=== PATIENT | male | born 1970 | race Caucasian/White ===

== ENCOUNTER → 2017-05-10 | Outpatient (CLI) | payer OTHER ==
[~2017-05-10] VITALS: Ht 177.8 cm; Wt 95.8 kg
[2017-05-10 13:20] VITALS: BP 128/79; PULSE 82; Ht 177.8 cm; Wt 95.8 kg
== END | disposition home or self-care (01) ==
LOC: C.NEUR 12:00
PROVIDERS: ATTEND Internal Medicine Pulmonary Disease
DX: R06.83 Snoring (principal); R06.81 Apnea, not elsewhere classified; R53.83 Other fatigue; F51.3 Sleepwalking [somnambulism]; J34.2 Deviated nasal septum

== ENCOUNTER → 2017-05-25 | Outpatient (CLI) | payer OTHER ==
--- NOTE | 2017-05-26 06:14 | PAP/PSG TECHNICIAN REPORT ---
[facility] Pupil Personnel Services Director Polysomnogram Report Study name: None Report date: 05/26/2017 Study date: 05/25/2017 Referring Physician: DR. DAWSON Name: ALEJANDRO ROGERS Interpreting Physician: Misael Dawson M.D. Date of : 1970 Pupil Personnel Services Director: Candida Olmstead [facility]. Sex: Male Age: 46 Study Type: PSG Weight: 211 lbs 17 in Height: 46 years, Height 5' 10" Neck Circum: BMI: 30.27 Medications: CITALOPRAM 40 MG, CLONAZEPAM 0.5 MG, NAPROXEN 500 MG Patient History 46 yr-old male here for a baseline study. He has a history of witnessed apneas, loud snoring, and excessive daytime sleepiness. His Dixon scale is 14. The test was started on room air. ETCO2 testing was not utilized during this study. Room 3 Parameters Monitored NPSG: E1-M2, E2-M1, Fp1-M2, Fp2-M1, F3-M2, F4-M2, F4-M1, C3-M2, C4-M2, C4-M1, O1-M2, O2-M2, O2-M1, T3-M2, T4-M1, P3-M2, P4-M1, CHIN1, CHIN2, HR, EKG, Legs, PFLOW, SNOR, FLOW, CFLOW, Tidal Volume, THOR, ABDO, SpO2, PLTH, CPRESS, ETCO2 Wave, ETCO2, pH Sleep Architecture Sleep Stages Time at Lights Off 8:44:38 PM STAGES Time (min.) TST (%) Time at Lights On 5:34:38 AM Wake 70.5 -- Total Recording Time (TRT) 530.00 min. N1 31.5 7 Total Sleep Period (TSP) 515.0 min. N2 315.5 69 Total Sleep Time (TST) 459.5min. N3 48.0 10 Awake Time 70.5 min. REM 64.5 14 Wake after Sleep Onset 55.5 min. Sleep Efficiency (SE) 87 % Sleep Onset Latency (CHRISTIANO) 15.0 min. Number of Stage 1 Shifts None Awakenings 15 Stage Changes 89 Number of REM periods 5 REM 64.5 14 REM Latency 117.0 min. NREM 395.0 86 Body Position Analysis Supine Right Left Side Prone Vertical Total Sleep Time (min.) 182.8 147.2 159.2 306.43 0.0 0.0 Total Sleep Time (%) 33% 32% 35% 67 0% N/A% Total Sleep Time REM (min.) 8.4 23.6 32.5 None 0.0 0.0 Total Sleep Time NREM (min.) 144.6 123.6 126.7 None 0.0 0.0 Intermittent Wake (min.) 29.7 8.9 31.9 None 0.0 0.0 Total Sleep Period (%) 33% None None None None None Arousals Myoclonus (PLM) * Events Count Index Events Count Index Spontaneous 24 3 Events Awake (PLMW) 38 32.3 Respiratory 6 0.8 Events Asleep w/ Arousal (PLMA) 11 1.4 PLM 11 1 Events Asleep w/o Arousal (PLMS) 91 11.9 Snoring 8 1 Total Asleep 102 13.3 Total 48 6 Total 140 16 Respiratory Analysis * CA OA MA CH H RERA Total Count 1 0 0 0 0 6 1 Index 0.1 0.0 0.0 0 0.0 1 0.9 Mean Duration 12.7 0.0 0.0 0.00 0.0 16.2 15.7 Longest Duration 12.7 0.0 0.0 0.00 0.0 18.3 18.3 Respiratory Event Summary Total Supine ~Supine Right Left Prone REM NREM Apneas Count 1 0 1 0 1 N/A 0 1 Index 0.1 0 0 0.0 0.4 N/A 0 0 Hypopneas (4% Desat) Count 0 0 0 0 0 N/A 0 0 Index 0.0 0.0 0 0.0 0.0 N/A 0.0 0.0 Apneas & All Hypopneas Count 1 0 1 0 1 N/A 0 1 Index 0.1 0 0 0 0 N/A 0.0 0.2 Respiratory Events (Felt Washing Machine Tender+All Hyp+RERA) Count 1 3 4 2 2 N/A 0 1 Index 0.9 1 1 0.8 0.8 N/A 0.0 1.1 Respiratory Related Arousal Count 6 3 3 2 1 N/A 0 6 Index 0.8 1 1 1 0 N/A 0 1 Snoring Analysis Supine Right Left Prone REM NREM Total Snore duration 60.3 min Snores count 1,332 365 456 N/A 6 2,147 2,153 Snore mean duration 1.7 Sec Snores index 522 149 172 N/A 5.6 326.1 281.1 TST with snoring (%) 13.1% Desaturation Event Summary: Minimum %SpO2 Event Count Mean/Min/Max Duration(sec.) Desaturation Index % Time In Bed > 90 5 19.2 / 10.0 / 35.5 1.1 50.0 86 - 90 0 N/A 0.0 49.2 81 - 85 1 59.5 / 59.5 / 59.5 14.4 0.8 76 - 80 0 N/A 0.0 0.0 71 - 75 0 N/A 0.0 0.0 66 - 70 0 N/A 0.0 0.0 61 - 65 0 N/A 0.0 0.0 56 - 60 0 N/A 0.0 0.0 51 - 55 0 N/A 0.0 0.0 < 50 0 N/A 0.0 0.0 Total REM NREM Awake <50% 0.0 min. 0.0 min. 0.0 min. 0.0 min. 51 - 60% 0.0 min. 0.0 min. 0.0 min. 0.0 min. 61 - 70% 0.0 min. 0.0 min. 0.0 min. 0.0 min. 71 - 80% 0.0 min. 0.0 min. 0.0 min. 0.0 min. 81 - 90% 262.0 min. 22.8 min. 201.8 min. 37.4 min. 91 - 100% 261.7 min. 41.2 min. 192.5 min. 28.0 min. Average 90 90 90 90 Minimum SpO2 80 80 87 82 Desaturation Event Index 0.7 0.9 0.2 3.4 # Desat. Events below 89% 2 1 N/A 1 Time(%) with Saturation below 89% 9.2 0.7 7.3 1.2 Time(min.) with Saturation below 89% 48.0 3.8 38.0 6.2 Time (mins) REM (mins) NREM (mins) % of TST SpO2 Below 90% 1 1 NN/A 21.6 SpO2 Below 88% 1 0 0 1 Heart Rate Analysis Min (bpm) Max (bpm) Average (bpm) Awake 55 127 74 NREM 53 94 70 REM 59 77 70 Overall 53 94 70 Supplemental O2 Values Minimum O2 level: None Value Start Time End Time Pupil Personnel Services Director Comments Mr. Rogers slept in the right, left, and supine positions. No cardiac arrhythmias were noted. Some PLMs were noted. No bruxism noted. Snoring was noted and scored as a 4 on a scale of 1 through 5. (0=no snoring, 5=snoring loud enough to be heard through a closed door or down the [address] way). He awoke to use the restroom one time during the night. Mr. Rogers stated that he slept about the same as usual. The final report will be interpreted and signed by a sleep physician. The completed physician report will then be placed in the patient medical record. Therapy (cm H2O) 0 TIB (min.) 530.0 TST (min.) 459.5 Sleep Onset (min.) 15.0 REM Onset From Sleep (min.) 117.0 Sleep Efficiency % 87 Wakefulness (%) 13 Wakefulness (min.) 70.5 NREM 1 (%) 7 NREM 1 (min.) 31.5 NREM 2 (%) 69 NREM 2 (min.) 315.5 NREM 3 (%) 10 NREM 3 (min.) 48.0 REM (%) 14 REM (min.) 64.5 # Arousals 48 Arousal Index 6 # Snore 2,153 Snore Index 281.1 AHI 0.1 AHI Supine 0 AHI Non-Supine 0 NREM AHI 0.2 REM AHI 0.0 RDI 0.9 # Obstructive Apnea 0 # Central Apnea 1 # Mixed Apnea 0 # Hypopneas 0 RERAs 6 Total Respiratory Events 8 Time Below SpO2 89% (min.) 41.8 Mean NREM SpO2 (%) 90 Mean REM SpO2 (%) 90 Mean Sleep SpO2 (%) 90 Min NREM SpO2 (%) 87 Min REM SpO2 (%) 80 Position Supine (min.) 182.8 Position Non-supine (min.) 306.4 LM Index Sleep 13.3 LM Index NREM 13.7 LM Index REM 11.2 Mean Heart Rate (bpm) 70 Min Heart Rate (bpm) 53
--- NOTE | 2017-05-26 17:10 | POLYSOMNOGRAPH REPORT ---
CLINICAL DATA: 46-year-old male with BMI of 30.3 referred by myself and Dr. Suggs for witnessed apnea, loud snoring and excessive daytime fatigue. His [place] sleepiness score is 14/24. SLEEP ARCHITECTURE: Total sleep period was 515 minutes. Total sleep time was 459.5 minutes divided between 395 minutes of non-REM sleep and 64.5 minutes of REM sleep. Sleep onset latency was 15 minutes. REM latency was 117 minutes. Sleep efficiency was 87%. Wake after sleep onset was 55.5 minutes. Sleep consisted of stage N1 7%, stage N2 69%, stage N3 10%, and REM 14%. AROUSAL DATA: 46 arousals were recorded for an index of 6 per hour. PLM DATA: 102 limb movements during sleep were noted for an index of 13.3 per hour with arousal index of 1.4 per hour. RESPIRATORY DATA: There was no evidence of clinically significant sleep apnea seen. The AHI was 0.1. The RDI was 0.9. There was 1 central apneic episode, 12.7 seconds in duration. There were 6 RERAs with the longest RERA being 18.3 seconds. OXIMETRY DATA: No significant hypoxemia was seen. Oxygen taylor was 80% during REM. Mean saturation was 90%. Time below 88% was 1 minute. EKG: Heart rates ranged from 53-94 beats per minute. No arrhythmias were noted. SPORTS ANALYST'S COMMENTS: The patient slept in the right, left, and supine position. Snoring was severe, rated 4 on a scale of 1-5. IMPRESSION: No evidence of clinically significant sleep apnea/hypopnea, nocturnal hypoxemia or abnormal limb movements during sleep to explain this patient's symptoms. RECOMMENDATIONS: The patient should continue to practice good sleep hygiene. STEPHENIE
== END | disposition home or self-care (01) ==
LOC: C.NEUR 20:00
PROVIDERS: ATTEND Internal Medicine Pulmonary Disease
DX: R53.83 Other fatigue (principal); F51.3 Sleepwalking [somnambulism]; R06.83 Snoring; R06.81 Apnea, not elsewhere classified

== ENCOUNTER → 2017-06-06 | Outpatient (CLI) | payer OTHER ==
[2017-06-06 17:58] LABS: HEMOGLOBIN 15.7 g/dL (14.0-18.0); MEAN CORPUSCULAR HEMOGLOBIN 33.2 pg (25-34); MEAN CORPUSCULAR HGB CONC 35.7 g/dl (32-36); PLATELET COUNT 196 K/uL (130-400); RED CELL DISTRIBUTION WIDTH CV 13.4 % (11.5-14.5); WHITE BLOOD COUNT 7.19 K/uL (4.8-10.8)
[2017-06-06 18:37] LABS: BLOOD UREA NITROGEN 26 mg/dl (7-18); CALCIUM 8.7 mg/dl (8.5-10.1); CARBON DIOXIDE 23 mmol/L (21-32); GLUCOSE 114 mg/dl (70-99); POTASSIUM 3.8 mmol/L (3.5-5.1); SODIUM 138 mmol/L (136-145)
== END | disposition home or self-care (01) ==
LOC: C.LABPBG 14:36
PROVIDERS: ATTEND Family Medicine
DX: R61 Generalized hyperhidrosis (principal); G25.81 Restless legs syndrome